=== PATIENT | male | born 1950 | race Caucasian/White ===

== ENCOUNTER → 2019-06-27 | Outpatient (CLI) | payer MEDICARE, OTHER ==
--- NOTE | 2019-06-27 14:56 | REP ---
MRI of the brain without contrast Indication: Hearing loss. Comparison: None Technique: Multisequence axial MRI of the brain was performed utilizing IAC protocol. No intravenous contrast was administered. Findings: There is a 2.1 x 1.5 cm ovoid mass within the left cerebellopontine angle with extension and apparent widening into the left internal auditory canal. There is mild mass effect on the left lateral aspect of the linda. The mass abuts the left vertebral artery. There is no midline shift or basal cistern effacement. This mass is T1 and T2 isointense to the cortex and exhibits restricted diffusion. The left cochlea and semicircular canals are unremarkable. The right CP angle and internal auditory canal are normal. There is no restricted diffusion to suggest acute ischemia or infarction. The ventricles and sulci are symmetric. There is no extra-axial fluid collection. The visualized flow voids are preserved. There is a right scleral band. There is mild mucosal thickening of the right maxillary sinus. The mastoid air cells are clear. Impression: 2.1 x 1.5 cm left CP angle mass with extension into the left internal auditory canal, incompletely characterized on this unenhanced examination. This lesion is nonspecific but suggestive of a schwannoma or meningioma. Electronically Signed by Damian Hill MD 06/27/2019 02:47 P
== END ==
LOC: M RAD 13:36
PROVIDERS: ATTEND Otolaryngology
DX: H83.8X2 Other specified diseases of left inner ear (principal); H90.A22 Sensorineural hearing loss, unilateral, left ear, with restricted hearing on the contralateral side

== ENCOUNTER → 2019-11-01 | Outpatient (CLI) | payer MEDICARE, BC ==
[2019-11-01 14:56] LABS: BLOOD UREA NITROGEN 11 MG/DL (7-18); GLOMERULAR FILTRATION RATE > 60.0 (>49)
== END ==
LOC: M LAB 14:11
PROVIDERS: ATTEND Physician Assistant Medical
DX: D33.3 Benign neoplasm of cranial nerves (principal)

== ENCOUNTER → 2019-11-07 | Outpatient (CLI) | payer MEDICARE, BC ==
[~2019-11-07] MED LIST: PROHANCE 279.3MG/ML 15ML VIAL (A9576) As Ordered ONE; PROHANCE 279.3MG/ML 5ML VIAL (A9576) As Ordered ONE
--- NOTE | 2019-11-07 19:45 | REP ---
MRI study of the brain and internal auditory canals without and with intravenous contrast: History: Benign lesion of the cranial nerve. Comparison MRI study June 27, 2019. Gadolinium enhancement dose is 18 mL of intravenous ProHance. MR technique: Axial, sagittal, and coronal imaging planes are utilized. T1 and T2-weighted sequences include spin-echo, turbo spin echo, FLAIR, diffusion weighted scans, and thin-section gradient echo T2-weighted images. Postcontrast enhanced T1-weighted scans were obtained in all three planes. MRI findings: The bony calvarium is intact. Craniocervical junction and upper cervical cord are normal in appearance. Diffusion weighted scan show no evidence of restricted diffusion to suggest acute ischemia. Oropeza-white differentiation pattern is intact. No intraorbital abnormality is seen. There is no MR evidence of significant paranasal sinus disease. The previously noted CP angle cistern mass with intracanalicular extension into the left internal auditory canal is again seen. This shows slightly hyperintense T2 signal intensity and isointense T1 signal intensity before contrast. It enhances avidly and slightly heterogeneously on postcontrast images. Its dimensions are 21 x 21 mm x 25 mm. It extends 9 mm into and slightly widening the left internal auditory canal. The right internal auditory canal is normal in appearance. No other extra-axial mass lesion is seen. 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 It is felt to be unchanged in size from the June 27, 2019 study. There is subtle mass effect on the left cerebellar peduncle and left lateral pontine border. Electronically Signed by Corey Cervantes MD 11/08/2019 08:09 A
== END ==
LOC: M RAD 17:42
PROVIDERS: ATTEND Physician Assistant Medical
DX: D33.3 Benign neoplasm of cranial nerves (principal)
CPT/HCPCS: 70553; A9576